=== PATIENT | female | born 1930 | race Caucasian/White ===

== ENCOUNTER 2018-06-25 12:47 | Inpatient (IN) ==
--- NOTE | 2018-06-25 14:19 | Diag Imaging Result Doc PS360 ---
EXAM: MRI LUMBAR SPINE W/WO CONTRAST 06/25/2018 HISTORY: back pain after epidural TECHNIQUE: T1-T2 and STIR sagittal with post gadolinium T1 fat sat sagittal, T1 and T2 axial with post gadolinium axial T1. COMMENT: There is no evidence of bone marrow edema. There is some rotoscoliosis of the lumbar spine with convexity to the left. There is no evidence of abnormal gadolinium enhancement. At T11-12 there is disc desiccation but no evidence of spinal stenosis is present. There is hypertrophic facet disease bilaterally. At the T12-L1 level there is degenerative disc disease with disc desiccation and irregularity of the endplates as well as some posterior osteophyte formation. There is no evidence of spinal stenosis. There is mild narrowing of the right foramen. At the L1-2 level there is severe right-sided foraminal stenosis due to hypertrophic facet disease and disc bulge. There is no evidence of spinal stenosis. At the L2-3 level there is severe bilateral facet arthropathy as well as osteophyte formation and disc bulge producing spinal and bilateral foraminal stenosis. At the L3-4 level, there is disc bulge and mild spinal stenosis. The right foramen is slightly narrowed. At the L4-5 level there is posterior osteophyte formation and disc bulge as well as ligamentum flavum hypertrophy on the left producing a moderate degree of spinal stenosis. The foramina appear to be patent. At L5-S1 there is hypertrophic facet disease bilaterally. The foramina appear to be patent. There is some disc bulge and osteophyte formation with moderate spinal stenosis. IMPRESSION: Multilevel spinal and foraminal stenosis as described above. No evidence of acute inflammatory disease or epidural bleed. Electronically signed by Stephen Ribeiro 06/25/2018 2:17 PM
[2018-06-25] MEDS ORDERED: TYLENOL PO PRN (15:50)
[2018-06-25] MEDS ORDERED: ZOFRAN IV PRN (15:50)
[2018-06-25] MEDS ORDERED: ZOFRAN PO PRN (15:51)
[2018-06-25] MEDS ORDERED: NORCO-7.5 PO PRN (15:51)
--- NOTE | 2018-06-25 15:51 | PROVIDER DOCUMENTATION ---
This chart was entered by Pia Stinson Scribe, acting as scribe for Harry Mendoza MD. HPI-Neurological Disorder - General Chief Complaint: Extremity Pain Stated Complaint: reaction to epidural Time Seen by Provider: 06/25/18 13:21 Source: patient Allergies/Adverse Reactions: Patient Allergies Allergy/AdvReac Type Severity Reaction Status Date / Time morphine Allergy VOMITING Verified 06/25/18 14:17 codeine AdvReac NAUSEA/VOMI Verified 06/25/18 14:17 TING Penicillins AdvReac ANAPHYLAXIS Verified 06/25/18 14:17 Sulfa (Sulfonamide AdvReac ANAPHYLAXIS Verified 06/25/18 14:17 Antibiotics) Home Medications: Home Medication List Medication Instructions Recorded Confirmed Last Taken Type Ondansetron [Zofran] 4 mg PO Q6H PRN PRN #20 tablet 07/28/15 08/03/15 08/03/15 04:00 Rx Amitriptyline [Elavil] 10 mg PO HS 08/02/15 08/03/15 08/02/15 22:00 History Amlodipine Besylate [Norvasc] 7.5 mg PO DAILY 08/02/15 08/03/15 08/03/15 08:00 History Benazepril HCl [Lotensin] 40 mg PO QAM 08/02/15 08/03/15 08/03/15 08:00 History Calcium Carbonate/Vitamin D3 2 each PO DAILY 08/02/15 08/03/15 07/28/15 History [Calcium 600-Vit D3 400 Caplet] Esomeprazole Magnesium [Nexium] 20 mg PO DAILY 08/02/15 08/03/15 08/03/15 08:00 History Levothyroxine [Synthroid] 100 microgm PO DAILY 08/02/15 08/03/15 08/03/15 07:00 History Meloxicam [Mobic] 15 mg PO DAILY 08/02/15 08/03/15 07/29/15 History Metoprolol [Lopressor] 100 mg PO HS 08/02/15 08/03/15 08/02/15 22:00 History Psyllium [Metamucil Powder Packet] 1 each PO DAILY 08/02/15 08/03/15 08/02/15 22:00 History Hydrocodone/Acetaminophen [[place] 1 - 2 each PO Q4H PRN PRN #60 08/04/15 08/03/15 08/03/15 04:00 Rx 7.5-325 Tablet] - History of Present Illness-Neuro Nature of Presenting Problem: Patient is a 87 year old female who presents with paralysis to bilateral lower extremities after receiving an epidural from Dr. Robles. Dr. Robles reported the epidural contained Marcaine and Dexamethasone. Patient also reported lower abdominal pain. Dr Robles reported patient had a catheter inserted and received 500 cc of urine out. Patient denies fever, chills, headache and nausea. Severity: reports: mild Onset/Duration: reports: this morning Timing: reports: improving Character of Deficits: reports: altered sensation (paralysis) New weakness or altered sensation location:: reports: RLE, LLE Associated Symptoms: reports: other (abdominal pain) Similar Symptoms Previously?: No Recently seen or treated by another doctor?: Yes Review of Systems - Adult - REVIEW OF SYSTEMS - ADULT Constitutional: reports: no symptoms reported. denies: chills, fever, fatique Eyes: reports: no symptoms reported Ears, Nose, Mouth & Throat: reports: no symptoms reported Cardiovascular: reports: no symptoms reported Respiratory: reports: no symptoms reported Gastrointestinal: reports: see HPI, abdominal pain. denies: diarrhea, nausea, vomiting Genitourinary: reports: no symptoms reported Musculoskeletal: reports: no symptoms reported Integumentary: reports: no symptoms reported Neurological: reports: no symptoms reported, other (paralysis to bilateral lower extremities). denies: dizziness/vertigo, headache/migraines, numbness, seizure, syncope Psychiatric: reports: no symptoms reported Endocrine: reports: no symptoms reported Hematologic/Lymphatic: reports: no symptoms reported Allergic/Immunologic: reports: no symptoms reported All Other Systems: Reviewed and Negative Past History - Adult - PAST MEDICAL HISTORY-ADULT Review of Records: reports: Nursing Assessment Review, Medications Reviewed, Social history reviewed & non-contributory. Major Childhood Illnesses: reports: denies history Cardiovascular: reports: HTN Respiratory: reports: denies history Gastrointestinal: reports: denies history Obstetrical/Gynecological: reports: denies history Genitourinary: reports: denies history Musculoskeletal: reports: denies history Neurological: reports: denies history Psychiatric: reports: denies history Endocrine/Immune: reports: denies history, thyroid disorder Other Conditions: reports: denies history - PRIOR SURGERIES/PROCEDURES Surgical/Procedure History: reports: hysterectomy - IMMUNIZATION STATUS Childhood Immunizations: See Nurse Assessment Flu Vaccine: See Nurse Assessment - FAMILY HISTORY Family History: reviewed, not pertinent - SOCIAL HISTORY Smoking: denies Substance Use: denies Living Situation: alone Physical Exam- Neurological - Physical Exam-Neuro Initial Vital Signs Reviewed: Yes General Appearance: alert, no apparent distress. negative: lethargic, slow to respond Eye Exam: bilateral eye: normal inspection, PERRL, EOMI HENMT: normal ENT inspection, other (dry mucous membranes). negative: angioedema, hearing deficit Head Injury: no evidence of injury. negative: contusions, ecchymosis, lacerations Neck: non-tender, normal inspection. negative: limited range of motion, tender midline Respiratory: chest non-tender, lungs clear, normal breath sounds. negative: crackles, rhonchi, stridor Cardiovascular: normal peripheral pulses, regular rate, rhythm. negative: tachycardia, systolic murmur Abdominal Exam: normal bowel sounds, non tender, soft. negative: guarding, rebound Extremity: non-tender, normal inspection, other (all reflexes are intact. positive plantar dorsiflexion bilaterally.). negative: deformity, erythema, swelling fur tinter Exam: normal hearing, normal speech, PERRL. negative: abnormal speech, facial droop Motor/Sensory: no motor deficit, no sensory deficit, no pronator drift. negative: sensory deficit, weak motor strength RLE, weak motor strength LLE Neurologic: grossly normal, no motor/sensory deficits. negative: aphasia, facial droop Integumentary: normal color, normal turgor, warm/dry. negative: ecchymosis, erythema, jaundice Psych/Mental Status: normal mood/affect, oriented x 3. negative: paranoid, tearful - Glascow Coma Scale Best Eye Response: (4) open spontaneously Best Verbal Response: (5) oriented Best Motor Response: (6) obeys commands Total Glascow Score: 15 Progress - PLAN OF CARE/RESULTS Progress/Plan/Lab Results: Vital Signs - 8 hr 06/25/18 13:06 Pulse Rate 92 H Respiratory Rate 20 Blood Pressure 173/89 O2 Sat by Pulse Oximetry 99 Orders Category Date Time Status SLED Misc. NRSG Orders DIRECTED Care 06/25/18 13:21 Active MRI LUMBAR SPINE W/WO CONTRAST [MRI] Stat Exams 06/25/18 13:21 Completed - CT/MRI 1 MRI Study: Lumbar Spine Impression: See EMR Report ( EXAM: MRI LUMBAR SPINE W/WO CONTRAST 06/25/2018 HISTORY: back pain after epidural TECHNIQUE: T1-T2 and STIR sagittal with post gadolinium T1 fat sat sagittal, T1 and T2 axial with post gadolinium axial T1. COMMENT: There is no evidence of bone marrow edema. There is some rotoscoliosis of the lumbar spine with convexity to the left. There is no evidence of abnormal gadolinium enhancement. At T11-12 there is disc desiccation but no evidence of spinal stenosis is present. There is hypertrophic facet disease bilaterally. At the T12-L1 level there is degenerative disc disease with disc desiccation and irregularity of the endplates as well as some posterior osteophyte formation. There is no evidence of spinal stenosis. There is mild narrowing of the right foramen. At the L1-2 level there is severe right-sided foraminal stenosis due to hypertrophic facet disease and disc bulge. There is no evidence of spinal stenosis. At the L2-3 level there is severe bilateral facet arthropathy as well as osteophyte formation and disc bulge producing spinal and bilateral foraminal stenosis. At the L3-4 level, there is disc bulge and mild spinal stenosis. The right foramen is slightly narrowed. At the L4-5 level there is posterior osteophyte formation and disc bulge as well as ligamentum flavum hypertrophy on the left producing a moderate degree of spinal stenosis. The foramina appear to be patent. At L5-S1 there is hypertrophic facet disease bilaterally. The foramina appear to be patent. There is some disc bulge and osteophyte formation with moderate spinal stenosis. IMPRESSION: Multilevel spinal and foraminal stenosis as described above. No evidence of acute inflammatory disease or epidural bleed. Electronically signed by Stephen Ribeiro 06/25/2018 2:17 PM 06/25/18 1417 Interpreting Physician: Stephen Ribeiro MD Dictated Date/Time: 06/25/18 1411 cc: Harry Mendoza MD; Florentino Hernandez MD) - CONSULTS/PCP/HOSPITALIST Notification #1 *Consult/PCP/Hospitalist*: Dr. Hernandez Time Discussed: 15:26 Reason/Comments: Dr. Mendoza consulted with Dr. Hernandez about patient Consult Disposition: other (consulted with Dr. Robles) #2 Consult: Dr. Robles Time Discussed: 15:38 Reason/Comments: Dr. Mendoza consulted with Dr. Robles about patient. #3 Consult: Dr. Hernandez Time Discussed: 15:41 Reason/Comments: Dr. Mendoza consulted with Dr. Hernandez about patient. Consult Disposition: Will see in ED, Admit Departure - Departure Date of Disposition Decision: 06/25/18 Time of Disposition Decision: 15:44 DIAGNOSIS: Spinal paraplegia Disposition: ADMITTED INPATIENT 09 Certified Medical Emergency: Emergent Condition: Good Referrals and Follow-Ups: Florentino Hernandez MD [Primary Care Provider] - - Critical Care Note This patient required my direct & personal management of CC.: No Attestation - Physician/ STERLING Attestation Patient care was provided by Advanced Practice Provider:: No The physician spent face to face time with patient:: Yes Advanced Practice Provider documentation review:: Supervising physician onsite and consulted in the evaluation and care of this patient. The physician did have a face to face encounter with the patient. This chart was documented by the indicated scribe, (Pia Stinson Scribe) and accurately reflects the services I performed and decisions made by me, Harry Mendoza MD, as attested by the provider's signature.
[2018-06-25 17:43] LABS: BASO# 0.01 X1000 (0.0-0.2); BASO% 0.1 % (0.0-0.8); EOS# 0.01 X1000 (0.0-0.7); EOS% 0.1 % (0.0-10.0); HEMATOCRIT 40.9 % (37.0-47.0); HEMOGLOBIN 14.1 g/dL (12.0-16.0); IMM GRAN# 0.02 X1000 (0.0-0.04); IMM GRAN% 0.2 % (0.0-0.5); LYMPH# 0.63 X1000 (1.2-3.4); MCH 30.4 PG (27-31); MCHC 34.5 g/dL (33-37); MCV 88.1 FL (81-99); MONO# 0.11 X1000 (0.11-0.59); MONO% 1.1 % (1.7-9.3); MPV 10.9 FL (7.4-10.4); NEUT# 9.66 X1000 (1.4-6.5); NEUT% 92.5 % (42.2-75.2); PLT 317 X1000 (130-400); RBC 4.64 XMIL (4.2-5.4); RDW 12.9 % (11.5-14.5); WBC 10.44 X1000 (4.8-10.8)
[2018-06-25 17:53] LABS: INR 0.93; PROTIME 13.2 Seconds (11.0-16.0)
[2018-06-25 17:54] LABS: PTT 26.9 Seconds (22.3-41.8)
[2018-06-25 18:02] LABS: AGAP 15; BUN 11 mg/dL (8-22); CHLORIDE 96 mmol/L (98-107); COSMO 270; CREATININE 0.8 mg/dL (0.5-0.9); ESTIMATED GFR > 60; GLUCOSE 174 mg/dL (70-104); LYMPHS 7 % (21-51); MONO 1 % (1-9); SEGS 92 % (42-75); SODIUM 133 mmol/L (136-145); TCO2 22 mmol/L (25-35)
[2018-06-25 18:35] LABS: URINE SOURCE CATH
[2018-06-25 18:37] LABS: BILIRUBIN URINE NEGATIVE (NEGATIVE); BLOOD URINE MODERATE (NEGATIVE); COLOR YELLOW; GLUCOSE URINE NEGATIVE (NEGATIVE); KETONE URINE NEGATIVE (NEGATIVE); LEUKOCYTES URINE MODERATE (NEGATIVE); NITRITE URINE NEGATIVE (NEGATIVE); PROTEIN URINE 100 mg/dL (NEGATIVE); TURBIDITY URINE CLEAR (CLEAR); UR EPITHELIAL CELLS <10 /HPF (<10); URINE BACTERIA 4+ /HPF; URINE RBC <10 /HPF (<10); URINE WBC <10 /HPF (<10); UROBILINOGEN URINE NORMAL (NORMAL)
[2018-06-25] MEDS ORDERED: ELAVIL PO SCH (21:00)
[2018-06-25] MEDS ORDERED: LOPRESSOR PO SCH (21:00)
--- NOTE | 2018-06-25 22:14 | HISTORY AND PHYSICAL ---
CHIEF COMPLAINT: Weakness in legs. HISTORY OF PRESENT ILLNESS: The patient is an 87-year-old, white female, followed in my medical practice for her general primary care. Today, she had seen Dr. Robles and undergone epidural injection in her lumbar spine due to foraminal stenosis and back pain. Apparently, after the procedure, she developed some pain in the low back and some weakness in the legs and had some pain in the back, which seemed to be related to urinary retention. Dr. Robles saw the patient in the emergency room throughout the morning and afternoon and placed a Deleon catheter and her legs have become stronger generally. She has been able to ambulate, but has been very weak in her legs. As she lives alone and is unsure with her gait, decision has been made to keep her in the hospital overnight for 23-hour observation. Deleon catheter remains in place. MEDICATIONS: Prior to admission have included Synthroid 100 mcg p.o. daily. Norvasc 7.5 mg p.o. daily, Lotensin 40 mg p.o. daily, Toprol-XL 100 mg p.o. daily. Elavil 10 mg p.o. at bedtime, trazodone 50 mg 4 p.o. at bedtime. Lipitor 20 mg p.o. at bedtime. She takes Ecotrin 81 mg daily normally, but she has been off of this and Mobic recently. ALLERGIES: Penicillin, sulfa, Terramycin, codeine and morphine. PAST MEDICAL HISTORY: 1. Hypothyroidism diagnosed 1991. 2. Hiatal hernia. 3. History of esophageal stricture with dilation in 1990. 4. History of MVP. 5. History of fibrocystic breast disease. 6. History of migraine headaches. 7. Hypertension. 8. Diverticulosis. 9. Osteoarthritis. 10. Osteoporosis. 11. Hypercholesterolemia. 12. 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 PAST SURGICAL HISTORY: 1. Total thyroidectomy 1991. 2. Vaginal hysterectomy in 1988. 3. Bladder tack 1988. 4. Right cataract removal December 13, 1997. 5. Left cataract removal December 1999. 6. Left humerus fracture with ORIF 2002. 7. Right shoulder replacement, July 2015. IMMUNIZATIONS: Pneumovax-23 given 04/08/1996, 03/06/2004 and February 2014. Zostavax given February 2015. Prevnar 13 given May 2015. Last influenza vaccine given December 2017. FAMILY HISTORY: Notable for father with bladder cancer at age 65. Mother with osteoarthritis and CHF. No strokes, hypertension, [place], or diabetes in the family. SOCIAL HISTORY: The patient lives in [place]. She is . She has 2 daughters. She is retired from [employer]. She has never been a smoker. Does not drink alcohol. REVIEW OF SYSTEMS: Negative except as above. PHYSICAL EXAMINATION: VITAL SIGNS: See chart. GENERAL: Elderly, overall well-appearing, white female. SKIN: No rashes. HEENT: NC/AT. Left pupillary changes, chronic. Extraocular movements intact. Oropharynx, no redness, tongue in the midline. NECK: No lymphadenopathy, thyromegaly, JVD, or bruits. CV: Regular rate and rhythm without murmur. LUNGS: Clear to auscultation. ABDOMEN: Examined with the patient sitting up as she is currently sitting up in a chair. Nontender, nondistended. No mass or organomegaly appreciated. BACK: There is mild tenderness low lumbar area. BREAST/PELVIC/RECTAL: Deferred. Deleon catheter in place. EXTREMITIES: No major edema. Osteoarthritis changes prominent at the hands. NEUROLOGIC: Cranial nerves 2-12 are intact. Nonfocal. Notably she is somewhat weak in her legs, but is able to bear weight on her legs, but appears weak with ambulation. ASSESSMENT: 1. Leg weakness and urinary retention following epidural injection. 2. Foraminal stenosis with chronic back pain, followed by Dr. Robles. 3. Hypertension. 4. Osteoarthritis. 5. Osteoporosis. 6. Hypercholesterolemia. 7. Diverticulosis. 8. Migraine headaches. 9. Left eye blindness. 10. Hypothyroidism. 11. Hiatal hernia. 12. Chronic insomnia. PLAN: Will admit the patient for 23-hour observation. Continue her Deleon catheter. Monitor her weakness over the next few hours. Keep her at bed rest currently and continue her home medications with the exception leave off aspirin and Mobic. I have spoken with Dr. Robles and he will see the patient in consultation. cc: Florentino Hernandez MD
--- NOTE | 2018-06-26 08:47 | PROGRESS NOTE ---
DATE: 06/26/2018 SUBJECTIVE: The patient is stable. She complains of some heartburn after eating her meals. Legs, she thinks are getting a little stronger. She still has a Deleon catheter in. OBJECTIVE: Vital Signs: Afebrile, pulse 83, respirations 20, blood pressure is elevated at 181/95. CV: RRR. Lungs: Clear. Abdomen: Nontender, nondistended. Extremities: DTRs are equal at 2+/4 knee jerks. She moves all extremities well. She seems still a little weak in her legs, but not severely so. She is able to move them well. : Deleon catheter in place. Neurologic: Cranial nerves II through XII are intact, nonfocal. IMAGING AND LABORATORY DATA: Lab data from last evening was normal. UA shows 4+ bacteria, moderate leukocytes. That is a cath specimen. Urine culture is in progress. MRI from yesterday notably revealed no change from prior to the epidural, showing multilevel spinal and foraminal stenosis, no evidence of acute inflammatory disease or epidural bleed. ASSESSMENT: 1. Leg weakness and urinary retention following epidural injection. 2. Spinal and foraminal stenosis, lumbar, with chronic back pain, followed by Dr. Robles. 3. Hypertension. 4. Osteoarthritis. 5. Osteoporosis. 6. Hypercholesterolemia. 7. Diverticulosis. 8. Migraine headaches. 9. Left eye blindness. 10. Hypothyroidism. 11. Hiatal hernia. 12. Chronic insomnia. PLAN: We are going to try to make sure her medicines are up to her standard that she takes at home. Will try to bladder train her. Will get her some physical therapy to ambulate her and see how her legs do. Of course, we are leaving her off her aspirin and Mobic at this time as she does not need those blood thinners at this point. Dr. Robles is going to evaluate her too. cc: Florentino Hernandze MD
[2018-06-26] MEDS ORDERED: LOTENSIN PO SCH (09:00)
[2018-06-26] MEDS ORDERED: SYNTHROID PO SCH (09:00)
[2018-06-26] MEDS ORDERED: APRESOLINE PO SCH (09:00)
[2018-06-26] MEDS ORDERED: METAMUCIL POWDER PACKET PO SCH (09:00)
[2018-06-26] MEDS ORDERED: NEXIUM PO SCH (09:00)
[2018-06-26] MEDS ORDERED: CALTRATE 600 + D PO SCH (09:00)
[2018-06-26] MEDS ORDERED: NORVASC PO SCH (09:00)
[2018-06-26] MEDS ORDERED: OPTIVAR 0.05% OPH SOLUTION MISC SCH (09:00)
[2018-06-26] MEDS: OPTIVAR 0.05% OPH SOLUTION MISC SCH ×2 (16:35→17:13)
[2018-06-26 17:14] VITALS: BP 167/92
--- NOTE | 2018-06-26 18:36 | PROGRESS NOTE ---
DATE: 06/26/2018 Patient overall doing better. Bladder training has gone well, and she has ambulated with Physical Therapy well without major weakness in her legs. She has availability to a walker at home, and family members are going to stay with her. She is interested in going home as she feels anxious here in the hospital. She will resume her home medicines except for no aspirin and no Mobic. We will add MiraLAX b.i.d. She has that at home. She will follow up with me in 1 week regarding her BP. She declines home health care but may arrange that should she worsen and need that. Dr. Robles has seen her this morning as well. cc: Florentino Hernandez MD
[2018-06-26] MEDS ORDERED: DESYREL PO SCH ×2 (21:00)
[2018-06-26] MEDS ORDERED: LIPITOR PO SCH (21:00)
[2018-06-26] MEDS ORDERED: TOPROL XL PO SCH (21:00)
[2018-06-27] MEDS ORDERED: SYNTHROID PO SCH (09:00)
== END 2018-06-26 19:59 | disposition home or self-care (01) | DRG 556 ==
LOC: SUPCPDRO → ED 12:47 → 3N 12:47
PROVIDERS: ADMIT Family Medicine; ATTEND Family Medicine
CPT/HCPCS: 72158; 80048; 81001; 85025; 85610; 85730; 87077; 87088; 87186; 97162; 99285; A9270; A9579